=== PATIENT | male | born 1965 | race Caucasian/White ===

== ENCOUNTER 2017-12-23 13:00 | Emergency (ER) | payer SELFPAY ==
[~2017-12-23] VITALS: Ht 180.3 cm; Wt 100.0 kg
[2017-12-23] VITALS (7 sets, daily range): BP systolic 160–192; BP diastolic 96–112; PULSE 73–86; RESP 17–18; TEMP 98.4; O2SAT 96–100
[~2017-12-23 13:00] MED LIST: ASPI325T PO; B COTAB3 PO; HYDR-2768 PO; RANI150 PO
[2017-12-23] MEDS ORDERED: ASPIRIN 325 MG TAB PO ONE (13:30)
[2017-12-23] MEDS ORDERED: SODIUM CHLORIDE 0.9% FLUSH 10 ML FLUSH IVF PRN (13:30)
--- NOTE | 2017-12-23 13:36 | PD ---
HPI Chief Complaint: Chest Pain Time Seen by Provider: 13:16 Travel History International Travel<30 days: No Contact w/Intl Traveler<30days: No Traveled to known affect area: No History of Present Illness HPI This patient complains of chest pain. Location is center sternum. Feels like an aching and a pressure. It has been going on and off since yesterday at 7 PM. It is not exertional. He is currently chest pain-free. No alleviating factors. No exacerbating factors. Denies history of cardiac disease. He has hypertension and smokes. PFSH Past Medical History Diminished Hearing: No GERD: Yes Hypertension: Yes Immunizations Current: Yes Past Surgical History Other Surgery: Yes (LEFT RING FINGER TENDON REPAIR) Social History Alcohol Use: No Tobacco Use: Yes (1 PPD) Substance Use: Yes (MARIJUANA) Allergies-Medications (Allergen,Severity, Reaction): Coded Allergies: No Known Allergies (Verified Adverse Reaction, Unknown, 12/23/17) Reported Meds & Prescriptions Reported Meds & Active Scripts Active Hydrochlorothiazide 12.5 Mg Cap 12.5 Mg PO DAILY Review of Systems General / Constitutional: No: Fever Eyes: No: Visual changes HENT: No: Headaches Cardiovascular: Positive: Chest Pain or Discomfort Respiratory: No: Shortness of Breath Gastrointestinal: No: Abdominal Pain Genitourinary: No: Dysuria Musculoskeletal: No: Pain Skin: No Rash Neurologic: No: Weakness Psychiatric: No: Depression Endocrine: No: Polydipsia Hematologic/Lymphatic: No: Easy Bruising Physical Exam Narrative GENERAL: Well-nourished, well-developed patient in no apparent distress. SKIN: Focused skin assessment reveals no rash and nodules. Skin is Warm and dry. HEAD: Atraumatic. Normocephalic. EYES: Pupils equal and round. No scleral icterus. No injection or drainage. ENT: No nasal bleeding or discharge. Mucous membranes pink and moist. NECK: Trachea midline. No JVD. CARDIOVASCULAR: Regular rate and rhythm. No murmur appreciated. RESPIRATORY: No accessory muscle use. Clear to auscultation. Breath sounds equal bilaterally. GASTROINTESTINAL: Abdomen soft, non-tender, nondistended. Hepatic and splenic margins not palpable. MUSCULOSKELETAL: No obvious deformities. No clubbing. No cyanosis. No edema. NEUROLOGICAL: Awake and alert. No obvious cranial nerve deficits. Motor grossly within normal limits. Normal speech. PSYCHIATRIC: Appropriate mood and affect; insight and judgment normal. Data Data Last Documented VS Vital Signs Date Time Temp Pulse Resp B/P (MAP) Pulse Ox O2 Delivery O2 Flow Rate FiO2 12/23/17 15:23 84 17 160/96 (117) 97 Room Air 12/23/17 13:06 98.4 Orders Orders Electrocardiogram (12/23/17 13:26) Basic Metabolic Panel (Bmp) (12/23/17 13:26) Ckmb (Isoenzyme) Profile (12/23/17 13:26) Complete Blood Count With Diff (12/23/17 13:26) Prothrombin Time / Inr (Pt) (12/23/17 13:26) Act Partial Throm Time (Ptt) (12/23/17 13:26) Troponin I (12/23/17 13:26) Chest, Single Ap (12/23/17 13:26) Ecg Monitoring (12/23/17 13:26) Iv Access Insert/Monitor (12/23/17 13:26) Oximetry (12/23/17 13:26) Aspirin (Aspirin) (12/23/17 13:30) Sodium Chloride 0.9% Flush (Ns Flush) (12/23/17 13:30) CKMB (12/23/17 13:31) CKMB% (12/23/17 13:31) Labs Laboratory Tests Test 12/23/17 13:31 White Blood Count 9.6 TH/MM3 Red Blood Count 5.18 MIL/MM3 Hemoglobin 15.5 GM/DL Hematocrit 45.1 % Mean Corpuscular Volume 87.1 FL Mean Corpuscular Hemoglobin 30.0 PG Mean Corpuscular Hemoglobin Concent 34.5 % Red Cell Distribution Width 13.6 % Platelet Count 311 TH/MM3 Mean Platelet Volume 7.6 FL Neutrophils (%) (Auto) 58.9 % Lymphocytes (%) (Auto) 25.2 % Monocytes (%) (Auto) 9.4 % Eosinophils (%) (Auto) 5.8 % Basophils (%) (Auto) 0.7 % Neutrophils # (Auto) 5.7 TH/MM3 Lymphocytes # (Auto) 2.4 TH/MM3 Monocytes # (Auto) 0.9 TH/MM3 Eosinophils # (Auto) 0.6 TH/MM3 Basophils # (Auto) 0.1 TH/MM3 CBC Comment DIFF FINAL Differential Comment Prothrombin Time 10.6 SEC Prothromb Time International Ratio 1.0 RATIO Activated Partial Thromboplast Time 26.4 SEC Blood Urea Nitrogen 13 MG/DL Creatinine 0.74 MG/DL Random Glucose 93 MG/DL Calcium Level 9.1 MG/DL Sodium Level 137 MEQ/L Potassium Level 4.0 MEQ/L Chloride Level 102 MEQ/L Carbon Dioxide Level 23.5 MEQ/L Anion Gap 12 MEQ/L Estimat Glomerular Filtration Rate 112 ML/MIN Total Creatine Kinase 161 U/L Creatine Kinase MB 4.3 NG/ML Troponin I LESS THAN 0.02 NG/ML MDM Medical Decision Making Medical Screen Exam Complete: Yes Emergency Medical Condition: Yes Medical Record Reviewed: Yes Differential Diagnosis Differential diagnosis includes PR, angina, pericarditis, pleurisy, GERD, anxiety. Narrative Course I have reviewed the patient's electronic medical record. IV placed I reviewed the EKG shows sinus rhythm and no ST elevation or ectopy I reviewed the chest x-ray is normal Extended cardiac monitoring shows sinus rhythm without ectopy CBC is normal Metabolic profile is normal CK is normal Troponin is normal Coagulation studies are normal I gave him an aspirin Had a lengthy discussion with the patient. Recommended hospitalization to evaluate his chest pain. He has multiple risk factors. He refuses and will sign out AGAINST MEDICAL ADVICE. Advised him to return if he worsens or changes his mind. He does have hypertension and is requesting refill of his antihypertensives. He cannot recall what he supposed to be taking. His last clinic note says he was on hydrochlorothiazide so I have written him 1 month of that Diagnosis Primary Impression: Chest pain Qualified Codes: R07.9 - Chest pain, unspecified Additional Impression: Hypertension Qualified Codes: I10 - Essential (primary) hypertension Med/Other Pt SpecificInfo: Prescription(s) given Scripts Hydrochlorothiazide (Hydrochlorothiazide) 12.5 Mg Cap 12.5 MG PO DAILY, #30 CAP 0 Refills Prov: Iggy Cruz MD 12/23/17 Disposition: 07 AGAINST MEDICAL ADVICE Condition: Stable Iggy Cruz MD Dec 23, 2017 13:36
[2017-12-23 14:06] LABS: AUTOMATED NEUTROPHIL # 5.7 TH/MM3 (1.8-7.7); BASOPHIL # 0.1 TH/MM3 (0-0.2); BASOPHIL % 0.7 % (0.0-2.0); EOSINOPHIL # 0.6 TH/MM3 (0-0.4); EOSINOPHIL % 5.8 % (0.0-4.0); HEMATOCRIT 45.1 % (39.0-51.0); HEMOGLOBIN 15.5 GM/DL (13.0-17.0); LYMPH % 25.2 % (9.0-44.0); LYMPHOCYTE # 2.4 TH/MM3 (1.0-4.8); MEAN CELL VOLUME 87.1 FL (80.0-100.0); MEAN CORPUSCULAR HGB CONC 34.5 % (32.0-36.0); MEAN PLATELET VOLUME 7.6 FL (7.0-11.0); MONO % 9.4 % (0.0-8.0); MONOCYTE # 0.9 TH/MM3 (0-0.9); NEUT % 58.9 % (16.0-70.0); PLATELET COUNT 311 TH/MM3 (150-450); RED BLOOD COUNT 5.18 MIL/MM3 (4.50-5.90); RED CELL DISTRIBUTION WIDTH 13.6 % (11.6-17.2); WHITE BLOOD COUNT 9.6 TH/MM3 (4.0-11.0)
[2017-12-23 14:15] LABS: PROTHROMBIN TIME - PATIENT 10.6 SEC (9.8-11.6)
--- NOTE | 2017-12-23 14:17 | RADRPT ---
EXAM DATE/TIME: 12/23/2017 13:34 [facility] COMPARISON: No previous studies available for comparison. INDICATIONS : Chest pain. MEDICAL HISTORY : Hypertension. SURGICAL HISTORY : None. ENCOUNTER: Initial ACUITY: 1 day PAIN SCORE: 5/10 LOCATION: Left upper chest FINDINGS: A single view of the chest demonstrates the lungs to be symmetrically aerated without evidence of mas s, infiltrate or effusion. The cardiomediastinal contours are unremarkable. Osseous structures are intact. CONCLUSION: No acute disease. Danny Kern MD on December 23, 2017 at 14:15 Board Certified Radiologist. This report was verified electronically.
[2017-12-23 14:24] LABS: BICARBONATE 23.5 MEQ/L (21.0-32.0); BLOOD UREA NITROGEN 13 MG/DL (7-18); CALCIUM 9.1 MG/DL (8.5-10.1); CHLORIDE 102 MEQ/L (98-107); CREATININE 0.74 MG/DL (0.60-1.30); GLOMERULAR FILTRATION RATE 112 ML/MIN (>89); GLUCOSE,RANDOM 93 MG/DL (74-106); SODIUM (NA) 137 MEQ/L (136-145)
[2017-12-23 14:29] LABS: TROPONIN I LESS THAN 0.02 NG/ML (0.02-0.05)
[2017-12-23] MEDS ORDERED: HYDR12.57 PO (17:57)
--- NOTE | 2017-12-23 23:39 | EKG ---
Date Performed: 12/23/2017 Time Performed: 13:26:40 PTAGE: 52 years EKG: Sinus rhythm NORMAL ECG PREVIOUS TRACING : 06/11/2005 06.59 Since the previous tracing, no significant change noted DOCTOR: Ervin Lobato Interpretating Date/Time 12/23/2017 23:37:22
== END 2017-12-23 18:36 | disposition left against medical advice (07) ==
LOC: NEPC 13:00
DX: R07.9 Chest pain, unspecified (principal); I10 Essential (primary) hypertension; F17.210 Nicotine dependence, cigarettes, uncomplicated
CPT/HCPCS: 71045; 80048; 82550; 82552; 84484; 85025; 85610; 85730; 93005; 99285